=== PATIENT | female | born 1945 | race Caucasian/White ===

== ENCOUNTER → 2016-09-14 | Outpatient (CLI) | payer MEDICARE, BC ==
[~2016-09-14] MED LIST: AMLODIPINE5 MG PO; HYDROCHLOR50 MG PO; LEVOTHYROXIN0.112 MG PO; METOPROLOL SUC100 MG PO; MULTIVITAMIN FO1 CAP PO
== END ==
LOC: MAMMO 12:46
DX: Z12.31 Encounter for screening mammogram for malignant neoplasm of breast (principal); Z00.00 Encounter for general adult medical examination without abnormal findings
CPT/HCPCS: G0202

== ENCOUNTER → 2017-09-12 | Outpatient (CLI) | payer MEDICARE, BC ==
[2013-01-03 09:25] VITALS: BP 147/86
[2017-09-12 08:06] LABS: HEMATOCRIT 41.1 % (37.0-47.0); HEMOGLOBIN 13.7 g/dL (12.5-16.0); MEAN CELL VOLUME 93 fl (78-100); MEAN CORPUSCULAR HEMOGLOBIN 31 pg (27-31); MEAN CORPUSCULAR HGB CONC 33 g/dL (33-37); MEAN PLATELET VOLUME 8.3 fl (7.4-10.4); PLATELET COUNT 256 K/mm3 (130-400); RED BLOOD COUNT 4.44 M/mm3 (4.10-5.30); RED CELL DISTRIBUTION WIDTH 12.6 % (11.5-14.5); WHITE BLOOD COUNT 4.8 K/mm3 (4.8-10.8)
[2017-09-12 09:02] LABS: BUN/CREATININE RATIO 20.4 (6.0-26.0); CALCIUM 10.2 mg/dL (8.4-10.2); POTASSIUM 3.8 mmol/L (3.6-5.0); TOTAL BILIRUBIN 0.5 mg/dL (0.2-1.3); TOTAL PROTEIN 7.3 g/dL (6.3-8.2)
[2017-09-12 09:03] LABS: LYMPHOCYTE 39 % (20-51); MONOCYTE 16 % (3-10); NEUTROPHILS 43 % (42-75)
== END ==
LOC: LAB 07:48
PROVIDERS: Nurse Practitioner Family
DX: I10 Essential (primary) hypertension (principal); E03.4 Atrophy of thyroid (acquired); M19.90 Unspecified osteoarthritis, unspecified site; Z13.220 Encounter for screening for lipoid disorders

== ENCOUNTER → 2017-11-06 | Outpatient (CLI) | payer MEDICARE, BC ==
[2013-01-03 09:25] VITALS: BP 147/86
[2017-11-06 14:21] LABS: URINE APPEARANCE CLEAR; URINE COLOR YELLOW
[2017-11-06 14:22] LABS: URINE BILIRUBIN NEGATIVE (NEGATIVE); URINE BLOOD NEGATIVE (NEGATIVE); URINE GLUCOSE NEGATIVE (NEGATIVE); URINE KETONE NEGATIVE (NEGATIVE); URINE LEUKOCYTE ESTERASE NEGATIVE (NEGATIVE); URINE NITRATE NEGATIVE (NEGATIVE); URINE PROTEIN(semi-quant) NEGATIVE (NEGATIVE); URINE UROBILINOGEN NORMAL (NORMAL)
[2017-11-07 00:43] LABS: RPR (VDRL) Non-reactive (())
== END ==
LOC: RAD 08:50
PROVIDERS: Nurse Practitioner Family
DX: G30.9 Alzheimer's disease, unspecified (principal)

== ENCOUNTER → 2017-12-06 | Outpatient (CLI) | payer MEDICARE, BC ==
[2013-01-03 09:25] VITALS: BP 147/86
== END ==
LOC: MAMMO 11-15 10:00
DX: Z12.31 Encounter for screening mammogram for malignant neoplasm of breast (principal)

== ENCOUNTER → 2018-01-17 | Outpatient (CLI) | payer MEDICARE, BC ==
[~2018-01-17] VITALS: Ht 167.6 cm; Wt 75.0 kg
[~2018-01-17] MED LIST changes: +ADULT ASPIRIN81 MG PO; +ARICEPT10 M1 PO; +D3-5000 90 MG-51 TAB PO; +FISH OIL 500 M1 EAC2 PO; +HCTZ 25MG25 MG PO; +LEVOTHYROXIN0.137 MG PO; +MELATIN 3 MG-11 TAB PO; +NORVASC 10MG10 MG PO; +OSCAL 500 TAB500 MG PO; +TOPROL XL100 MG PO
[2018-01-17 09:15] VITALS: BP 130/80
[2018-01-17 10:08] LABS: ALBUMIN 4.3 g/dL (3.5-5.0); BUN/CREATININE RATIO 12.9 (6.0-26.0); CALCIUM 9.9 mg/dL (8.4-10.2); POTASSIUM 3.5 mmol/L (3.6-5.0); TOTAL BILIRUBIN 0.6 mg/dL (0.2-1.3); TOTAL PROTEIN 7.5 g/dL (6.3-8.2)
[2018-01-17 10:13] LABS: EOS % 0.7 % (1.0-5.0); HEMATOCRIT 39.3 % (37.0-47.0); HEMOGLOBIN 13.3 g/dL (12.5-16.0); LYMPH# 1.7 (1.50-4.00); MEAN CELL VOLUME 93 fl (78-100); MEAN CORPUSCULAR HEMOGLOBIN 31 pg (27-31); MEAN CORPUSCULAR HGB CONC 34 g/dL (33-37); MEAN PLATELET VOLUME 8.4 fl (7.4-10.4); MONO # 0.6 (0.20-0.80); NEU # 3.4 (1.40-6.50); PLATELET COUNT 329 K/mm3 (130-400); RED BLOOD COUNT 4.24 M/mm3 (4.10-5.30); RED CELL DISTRIBUTION WIDTH 12.4 % (11.5-14.5); WHITE BLOOD COUNT 5.8 K/mm3 (4.8-10.8)
[2018-01-17 10:54] LABS: URINE APPEARANCE CLEAR; URINE BILIRUBIN NN (NEGATIVE); URINE BLOOD TRACE (NEGATIVE); URINE COLOR YELLOW; URINE GLUCOSE NEGATIVE (NEGATIVE); URINE KETONE NEGATIVE (NEGATIVE); URINE LEUKOCYTE ESTERASE TRACE (NEGATIVE); URINE MUCUS PRESENT (NOT PRESENT); URINE NITRATE NEGATIVE (NEGATIVE); URINE PROTEIN(semi-quant) NEGATIVE (NEGATIVE); URINE UROBILINOGEN NORMAL (NORMAL)
== END ==
LOC: AMSURD 08:55
PROVIDERS: Nurse Practitioner Family
DX: Z01.818 Encounter for other preprocedural examination (principal)

== ENCOUNTER → 2018-01-22 | Outpatient (CLI) | payer MEDICARE, BC ==
[2018-01-17 09:15] VITALS: BP 130/80
== END ==
LOC: LAB 11:39
DX: E87.6 Hypokalemia (principal)

== ENCOUNTER → 2018-01-24 | Outpatient (CLI) | payer MEDICARE, BC ==
[2018-01-17 09:15] VITALS: BP 130/80
[2018-01-24 16:22] LABS: URINE APPEARANCE CLEAR; URINE BILIRUBIN NEGATIVE (NEGATIVE); URINE BLOOD NEGATIVE (NEGATIVE); URINE COLOR YELLOW; URINE GLUCOSE NEGATIVE (NEGATIVE); URINE KETONE NEGATIVE (NEGATIVE); URINE LEUKOCYTE ESTERASE NEGATIVE (NEGATIVE); URINE NITRATE NEGATIVE (NEGATIVE); URINE PROTEIN(semi-quant) NEGATIVE (NEGATIVE); URINE UROBILINOGEN NORMAL (NORMAL); URINE WBC 0-1 /hpf (0-3)
== END ==
LOC: LAB 15:44
PROVIDERS: Nurse Practitioner Family
DX: R82.71 Bacteriuria (principal)

== ENCOUNTER → 2018-01-31 | Outpatient (CLI) | payer MEDICARE, BC ==
[2018-01-17 09:15] VITALS: BP 130/80
== END ==
LOC: PT 01-29 13:57
DX: Z47.1 Aftercare following joint replacement surgery (principal); Z96.652 Presence of left artificial knee joint

== ENCOUNTER → 2018-02-06 | Outpatient (CLI) | payer MEDICARE, BC ==
[2018-01-17 09:15] VITALS: BP 130/80
== END ==
LOC: LAB 10:01
DX: E87.6 Hypokalemia (principal)

== ENCOUNTER 2018-03-28 09:30 | Outpatient (RCR) | payer MEDICARE, BC ==
[2018-01-17 09:15] VITALS: BP 130/80
== END 2018-03-28 10:00 | disposition home or self-care (01) ==
LOC: PT 09:30
DX: Z47.1 Aftercare following joint replacement surgery (principal); Z96.652 Presence of left artificial knee joint
CPT/HCPCS: G8978-GP; G8979-GP

== ENCOUNTER → 2018-12-07 | Outpatient (CLI) | payer MEDICARE, BC ==
[2018-01-17 09:15] VITALS: BP 130/80
[2018-12-07 08:30] LABS: EOS # 0.1 (0.04-0.40); EOS % 0.9 % (1.0-5.0); HEMATOCRIT 40.3 % (37.0-47.0); HEMOGLOBIN 13.2 g/dL (12.5-16.0); LYMPH# 2.1 (1.50-4.00); MEAN CELL VOLUME 94 fl (78-100); MEAN CORPUSCULAR HEMOGLOBIN 31 pg (27-31); MEAN CORPUSCULAR HGB CONC 33 g/dL (33-37); MEAN PLATELET VOLUME 8.9 fl (7.4-10.4); MONO # 0.6 (0.20-0.80); NEU # 3.8 (1.40-6.50); PLATELET COUNT 283 K/mm3 (130-400); RED BLOOD COUNT 4.31 M/mm3 (4.10-5.30); RED CELL DISTRIBUTION WIDTH 13.2 % (11.5-14.5); WHITE BLOOD COUNT 6.6 K/mm3 (4.8-10.8)
[2018-12-07 08:47] LABS: ALBUMIN 4.4 g/dL (3.5-5.0); CALCIUM 9.7 mg/dL (8.4-10.2); POTASSIUM 3.9 mmol/L (3.6-5.0); TOTAL BILIRUBIN 0.5 mg/dL (0.2-1.3); TOTAL PROTEIN 7.3 g/dL (6.3-8.2)
== END ==
LOC: LAB 07:50
PROVIDERS: Physician Assistant
DX: Z00.00 Encounter for general adult medical examination without abnormal findings (principal); I10 Essential (primary) hypertension; E78.2 Mixed hyperlipidemia; Z12.31 Encounter for screening mammogram for malignant neoplasm of breast; E03.9 Hypothyroidism, unspecified; M19.90 Unspecified osteoarthritis, unspecified site

== ENCOUNTER → 2020-05-19 | Outpatient (CLI) | payer MEDICARE, BC ==
[2018-01-17 09:15] VITALS: BP 130/80
[2020-05-19 13:17] LABS: EOS # 0.1 (0.04-0.40); EOS % 0.8 % (1.0-5.0); HEMATOCRIT 42.4 % (37.0-47.0); HEMOGLOBIN 13.9 g/dL (12.5-16.0); LYMPH# 1.7 (1.50-4.00); MEAN CELL VOLUME 95 fl (78-100); MEAN CORPUSCULAR HEMOGLOBIN 31 pg (27-31); MEAN CORPUSCULAR HGB CONC 33 g/dL (33-37); MEAN PLATELET VOLUME 8.3 fl (7.4-10.4); MONO # 0.6 (0.20-0.80); NEU # 4.1 (1.40-6.50); PLATELET COUNT 279 K/mm3 (130-400); RED BLOOD COUNT 4.48 M/mm3 (4.10-5.30); WHITE BLOOD COUNT 6.4 K/mm3 (4.8-10.8)
[2020-05-19 13:25] LABS: POTASSIUM 4.3 mmol/L (3.5-5.1)
[2020-05-19 13:26] LABS: ALBUMIN 4.4 g/dL (3.4-4.8)
[2020-05-19 13:27] LABS: CALCIUM 9.4 mg/dL (8.3-10.5)
[2020-05-19 13:30] LABS: TOTAL BILIRUBIN 0.3 mg/dL (0.2-1.2)
== END ==
LOC: LAB 13:04
PROVIDERS: Physician Assistant
DX: E03.4 Atrophy of thyroid (acquired) (principal); I10 Essential (primary) hypertension; E78.2 Mixed hyperlipidemia; G30.9 Alzheimer's disease, unspecified

== ENCOUNTER → 2020-05-19 | Outpatient (CLI) | payer MEDICARE, BC ==
[2018-01-17 09:15] VITALS: BP 130/80
== END ==
LOC: MAMMO 13:03
DX: Z12.31 Encounter for screening mammogram for malignant neoplasm of breast (principal); Z00.00 Encounter for general adult medical examination without abnormal findings

== ENCOUNTER → 2020-11-26 | Outpatient (CLI) | payer MEDICARE, BC ==
[~2020-11-26] MED LIST changes: -ADULT ASPIRIN81 MG PO; +ASPIRIN E.C. 8181 MG PO; -D3-5000 90 MG-51 TAB PO; +LOSARTAN POTASS50 M1 PO; +MEMANTINE HCL10 MG PO; -MULTIVITAMIN FO1 CAP PO; +ONE-DAILY MULT1 EACH PO; +POTASSIUM CHLO10 ME7 PO; +VITAMIN D325 MC1 PO
[2020-11-26 17:00] VITALS: BP 189/86
[2020-11-26 19:00] VITALS: BP 180/118
== END ==
LOC: AMSURD 16:40
DX: T78.3XXA Angioneurotic edema, initial encounter (principal)
CPT/HCPCS: J2930; J3490

== ENCOUNTER 2020-12-29 13:29 | Emergency (ER) | payer MEDICARE, BC ==
[~2020-12-29 13:29] MED LIST changes: -LOSARTAN POTASS50 M1 PO; -MEMANTINE HCL10 MG PO; -POTASSIUM CHLO10 ME7 PO
[2020-12-29] MEDS ORDERED: LOSARTAN POTASS50 M1 PO (13:50)
[2020-12-29] MEDS ORDERED: POTASSIUM CHLO10 ME7 PO (13:50)
[2020-12-29] MEDS ORDERED: MEMANTINE HCL10 MG PO (13:50)
[2020-12-29 14:56] LABS: EOS # 0.1 (0.04-0.40); HEMATOCRIT 41.5 % (37.0-47.0); HEMOGLOBIN 13.7 g/dL (12.5-16.0); LYMPH# 1.5 (1.50-4.00); MEAN CELL VOLUME 94 fl (78-100); MEAN CORPUSCULAR HEMOGLOBIN 31 pg (27-31); MEAN CORPUSCULAR HGB CONC 33 g/dL (33-37); MONO # 0.8 (0.20-0.80); NEU # 4.5 (1.40-6.50); PLATELET COUNT 346 K/mm3 (130-400); RED BLOOD COUNT 4.42 M/mm3 (4.10-5.30); RED CELL DISTRIBUTION WIDTH 12.5 % (11.5-14.5)
[2020-12-29 15:00] LABS: ALBUMIN 4.3 g/dL (3.4-4.8); SODIUM 135 mmol/L (136-145)
[2020-12-29 15:01] LABS: CALCIUM 9.7 mg/dL (8.3-10.5)
[2020-12-29 15:02] LABS: GLUCOSE 81 mg/dL (65-105)
[2020-12-29 15:03] LABS: TOTAL PROTEIN 7.1 g/dL (6.2-8.1)
[2020-12-29 15:04] LABS: CARBON DIOXIDE 25 mmol/L (23-31); TOTAL BILIRUBIN 0.3 mg/dL (0.2-1.2)
[2020-12-29 15:08] LABS: AST-SGOT 20 U/L (5-34)
[2020-12-29 15:09] LABS: ALT/SGPT 17 U/L (0-55)
[2020-12-29 16:04] LABS: ERYTHROCYTE SEDIMENTATION RATE 15 mm/hr (0-30)
[2020-12-29 16:06] VITALS: BP 170/94
== END 2020-12-29 16:39 | disposition short-term general hospital (02) ==
LOC: ED 13:29
PROVIDERS: Nurse Practitioner Family
DX: T78.3XXA Angioneurotic edema, initial encounter (principal); I10 Essential (primary) hypertension; E03.9 Hypothyroidism, unspecified; Z20.822 Contact with and (suspected) exposure to COVID-19; Z79.890 Hormone replacement therapy; Z79.82 Long term (current) use of aspirin
CPT/HCPCS: J0171; J1200; J2930; J3490; J7030

== ENCOUNTER → 2021-03-18 | Outpatient (CLI) | payer MEDICARE, BC ==
[~2021-03-18] MED LIST changes: +LOSARTAN POTASS50 M1 PO; +MEMANTINE HCL10 MG PO; +POTASSIUM CHLO10 ME7 PO
[2021-03-18 11:35] LABS: BASO # 0.03 (0.02-0.10); EOS # 0.03 (0.04-0.40); EOS % 0.5 % (1.0-5.0); HEMATOCRIT 40.8 % (37.0-47.0); HEMOGLOBIN 13.5 g/dL (12.5-16.0); LYMPH# 1.47 (1.50-4.00); MEAN CELL VOLUME 95 fl (78-100); MEAN CORPUSCULAR HEMOGLOBIN 32 pg (27-31); MEAN CORPUSCULAR HGB CONC 33 g/dL (33-37); MEAN PLATELET VOLUME 8.3 fl (7.4-10.4); MONO # 0.44 (0.20-0.80); NEU # 4.36 (1.40-6.50); PLATELET COUNT 268 K/mm3 (130-400); RED BLOOD COUNT 4.28 M/mm3 (4.10-5.30); RED CELL DISTRIBUTION WIDTH 12.6 % (11.5-14.5); WHITE BLOOD COUNT 6.4 K/mm3 (4.8-10.8)
[2021-03-19 01:08] LABS: COMPLEMENT-C4 26 mg/dL (15-57)
[2021-03-23 01:38] LABS: COMPLEMENT C1Q AMS
== END ==
LOC: LAB 11:18
PROVIDERS: Allergy & Immunology
DX: T78.3XXD Angioneurotic edema, subsequent encounter (principal)

== ENCOUNTER → 2021-12-20 | Outpatient (CLI) | payer MEDICARE, BC ==
[2021-12-20 15:08] LABS: BASO # 0.04 K/mm3 (0.02-0.10); EOS # 0.04 K/mm3 (0.04-0.40); EOS % 0.5 % (1.0-5.0); HEMATOCRIT 42.6 % (37.0-47.0); LYMPH# 2.05 K/mm3 (1.50-4.00); MEAN CELL VOLUME 96 fl (78-100); MEAN CORPUSCULAR HEMOGLOBIN 32 pg (27-31); MEAN CORPUSCULAR HGB CONC 33 g/dL (33-37); MEAN PLATELET VOLUME 8.4 fl (7.4-10.4); MONO # 0.56 K/mm3 (0.20-0.80); NEU # 4.79 K/mm3 (1.40-6.50); PLATELET COUNT 277 K/mm3 (130-400); RED BLOOD COUNT 4.42 M/mm3 (4.10-5.30); RED CELL DISTRIBUTION WIDTH 12.3 % (11.5-14.5); WHITE BLOOD COUNT 7.5 K/mm3 (4.8-10.8)
[2021-12-20 15:15] LABS: ALBUMIN 4.7 g/dL (3.4-4.8); POTASSIUM 3.9 mmol/L (3.5-5.1)
[2021-12-20 15:17] LABS: TOTAL PROTEIN 7.5 g/dL (6.2-8.1)
[2021-12-20 17:09] LABS: TOTAL BILIRUBIN 0.5 mg/dL (0.2-1.2)
== END ==
LOC: LAB 14:35
PROVIDERS: Family Medicine
DX: Z00.00 Encounter for general adult medical examination without abnormal findings (principal); E03.9 Hypothyroidism, unspecified; E78.5 Hyperlipidemia, unspecified; J30.2 Other seasonal allergic rhinitis; G30.9 Alzheimer's disease, unspecified; G47.09 Other insomnia; E55.9 Vitamin D deficiency, unspecified; E87.6 Hypokalemia; M19.90 Unspecified osteoarthritis, unspecified site; K57.90 Diverticulosis of intestine, part unspecified, without perforation or abscess without bleeding; I10 Essential (primary) hypertension; E03.4 Atrophy of thyroid (acquired)

== ENCOUNTER → 2023-05-16 | Outpatient (CLI) | payer MEDICARE, BC ==
[2023-05-16 17:16] LABS: BASO # 0.03 K/mm3 (0.02-0.10); EOS # 0.04 K/mm3 (0.04-0.40); EOS % 0.6 % (1.0-5.0); LYMPH# 1.67 K/mm3 (1.50-4.00); MEAN CELL VOLUME 96 fl (78-100); MEAN CORPUSCULAR HEMOGLOBIN 32 pg (27-31); MEAN CORPUSCULAR HGB CONC 33 g/dL (33-37); MEAN PLATELET VOLUME 8.1 fl (7.4-10.4); MONO # 0.56 K/mm3 (0.20-0.80); NEU # 4.57 K/mm3 (1.40-6.50); PLATELET COUNT 272 K/mm3 (130-400); RED BLOOD COUNT 4.36 M/mm3 (4.10-5.30); RED CELL DISTRIBUTION WIDTH 12.8 % (11.5-14.5); WHITE BLOOD COUNT 6.9 K/mm3 (4.8-10.8)
[2023-05-16 17:19] LABS: ALBUMIN 4.4 g/dL (3.4-4.8); POTASSIUM 4.2 mmol/L (3.5-5.1)
[2023-05-16 17:20] LABS: CALCIUM 9.6 mg/dL (8.3-10.5)
[2023-05-16 17:22] LABS: TOTAL PROTEIN 7.1 g/dL (6.2-8.1)
[2023-05-16 17:23] LABS: TOTAL BILIRUBIN 0.4 mg/dL (0.2-1.2)
== END ==
LOC: LAB 16:45
PROVIDERS: Family Medicine
DX: Z00.00 Encounter for general adult medical examination without abnormal findings (principal); E78.5 Hyperlipidemia, unspecified; G30.9 Alzheimer's disease, unspecified; I10 Essential (primary) hypertension; E87.6 Hypokalemia; K57.90 Diverticulosis of intestine, part unspecified, without perforation or abscess without bleeding; E03.9 Hypothyroidism, unspecified; M19.90 Unspecified osteoarthritis, unspecified site; G47.09 Other insomnia; J30.2 Other seasonal allergic rhinitis; E55.9 Vitamin D deficiency, unspecified

== ENCOUNTER → 2024-04-18 | Outpatient (CLI) | payer MEDICARE, BC ==
[2024-04-18 13:40] LABS: BASO # 0.03 K/mm3 (0.02-0.10); EOS # 0.04 K/mm3 (0.04-0.40); EOS % 0.5 % (1.0-5.0); HEMATOCRIT 43.7 % (37.0-47.0); HEMOGLOBIN 14.6 g/dL (12.5-16.0); LYMPH# 2.07 K/mm3 (1.50-4.00); MEAN CELL VOLUME 97 fl (78-100); MEAN CORPUSCULAR HEMOGLOBIN 33 pg (27-31); MEAN CORPUSCULAR HGB CONC 33 g/dL (33-37); MEAN PLATELET VOLUME 7.9 fl (7.4-10.4); MONO # 0.61 K/mm3 (0.20-0.80); NEU # 4.89 K/mm3 (1.40-6.50); PLATELET COUNT 308 K/mm3 (130-400); RED BLOOD COUNT 4.49 M/mm3 (4.10-5.30); RED CELL DISTRIBUTION WIDTH 12.4 % (11.5-14.5); WHITE BLOOD COUNT 7.7 K/mm3 (4.8-10.8)
[2024-04-18 13:52] LABS: SODIUM 132 mmol/L (136-145)
[2024-04-18 13:53] LABS: ALBUMIN 4.5 g/dL (3.4-4.8)
[2024-04-18 13:54] LABS: CALCIUM 10.1 mg/dL (8.3-10.5)
[2024-04-18 13:55] LABS: GLUCOSE 125 mg/dL (65-105); TOTAL PROTEIN 7.2 g/dL (6.2-8.1)
[2024-04-18 13:56] LABS: CARBON DIOXIDE 28 mmol/L (23-31)
[2024-04-18 13:57] LABS: TOTAL BILIRUBIN 0.6 mg/dL (0.2-1.2)
[2024-04-18 14:00] LABS: AST-SGOT 22 U/L (5-34)
[2024-04-18 14:02] LABS: ALT/SGPT 17 U/L (0-55); MAGNESIUM 1.97 mg/dL (1.60-2.60)
[2024-04-18 23:08] LABS: FOLATE (FOLIC ACID) 10.8 ng/mL (2.0-20.0)
== END ==
LOC: LAB 13:19
PROVIDERS: Internal Medicine
DX: I10 Essential (primary) hypertension (principal); E78.5 Hyperlipidemia, unspecified; E03.9 Hypothyroidism, unspecified; K90.9 Intestinal malabsorption, unspecified

== ENCOUNTER → 2024-04-23 | Outpatient (CLI) | payer MEDICARE, BC ==
[~2024-04-23] MED LIST changes: +Gadoterate 20 ML VIAL IV ONE
== END ==
LOC: RAD 12:48
DX: R41.3 Other amnesia (principal); R73.9 Hyperglycemia, unspecified; R89.1 Abnormal level of hormones in specimens from other organs, systems and tissues
CPT/HCPCS: A9575

== ENCOUNTER → 2024-10-14 | Outpatient (CLI) | payer MEDICARE, BC ==
[~2024-10-14] MED LIST changes: -Gadoterate 20 ML VIAL IV ONE
[2024-10-14 17:26] LABS: BASO # 0.04 K/mm3 (0.02-0.10); EOS # 0.04 K/mm3 (0.04-0.40); EOS % 0.5 % (1.0-5.0); HEMATOCRIT 38.5 % (37.0-47.0); HEMOGLOBIN 13.7 g/dL (12.5-16.0); LYMPH# 2.22 K/mm3 (1.50-4.00); MEAN CELL VOLUME 96 fl (78-100); MEAN CORPUSCULAR HEMOGLOBIN 34 pg (27-31); MEAN CORPUSCULAR HGB CONC 36 g/dL (33-37); MEAN PLATELET VOLUME 7.5 fl (7.4-10.4); MONO # 0.74 K/mm3 (0.20-0.80); NEU # 5.19 K/mm3 (1.40-6.50); PLATELET COUNT 305 K/mm3 (130-400); RED BLOOD COUNT 4.01 M/mm3 (4.10-5.30); RED CELL DISTRIBUTION WIDTH 11.3 % (11.5-14.5); WHITE BLOOD COUNT 8.3 K/mm3 (4.8-10.8)
[2024-10-14 17:32] LABS: ALBUMIN 4.8 g/dL (3.4-4.8)
[2024-10-14 17:33] LABS: CALCIUM 10.6 mg/dL (8.3-10.5)
[2024-10-14 17:36] LABS: TOTAL BILIRUBIN 0.4 mg/dL (0.2-1.2)
[2024-10-14 17:41] LABS: MAGNESIUM 1.89 mg/dL (1.60-2.60)
== END ==
LOC: LAB 17:12
PROVIDERS: Internal Medicine
DX: I10 Essential (primary) hypertension (principal); E78.5 Hyperlipidemia, unspecified; E03.9 Hypothyroidism, unspecified; K90.9 Intestinal malabsorption, unspecified

== ENCOUNTER → 2024-11-05 | Outpatient (CLI) | payer MEDICARE, BC ==
[2024-11-06 11:31] LABS: CALCIUM 9.8 mg/dL (8.3-10.5)
== END ==
LOC: LAB 10:07
PROVIDERS: Internal Medicine
DX: I10 Essential (primary) hypertension (principal); K90.9 Intestinal malabsorption, unspecified; E78.5 Hyperlipidemia, unspecified; E03.9 Hypothyroidism, unspecified